=== PATIENT | female | born 1980 | race Caucasian/White ===

== ENCOUNTER 2019-02-02 07:28 | Emergency (ER) | payer SELFPAY ==
[~2019-02-02] VITALS: Ht 165.1 cm; Wt 147.9 kg
[2019-02-02 07:47] VITALS: Ht 165.1 cm; Wt 147.9 kg
[2019-02-02 08:13] LABS: BASOPHIL % 0.3 % (0-2); PLATELET COUNT 353 x10^3mcL (130-400)
[2019-02-02 08:25] LABS: CALCIUM 8.9 mg/dL (8.5-10.1); CARBON DIOXIDE 27.1 mmol/L (21-32); CHLORIDE SERUM 105 mmol/L (98-107); CREATININE SERUM 0.8 mg/dL (0.6-1.0); GFR1 > 60 mL/min; GLUCOSE SERUM 110 mg/dL (74-106); SODIUM SERUM 141 mmol/L (136-145)
[2019-02-02 08:28] LABS: RED CELL DISTRIBUTION WIDTH 14.6 % (11.5-14.5)
[2019-02-02 08:30] LABS: ALBUMIN 3.7 g/dL (3.4-5.0); ALKALINE PHOSPHATASE 106 U/L (46-116); ALT/SGPT 47 U/L (14-59); AST/SGOT 25 U/L (15-37); BILIRUBIN TOTAL 0.5 mg/dL (0.20-1.00); TOTAL PROTEIN, SERUM 8.1 g/dL (6.4-8.2)
[2019-02-02 09:46] VITALS: BP 142/87
== END 2019-02-02 09:46 | disposition home or self-care (01) ==
LOC: ED 07:28
PROVIDERS: Emergency Medicine
DX: R42 Dizziness and giddiness (principal); R11.0 Nausea; H93.11 Tinnitus, right ear
CPT/HCPCS: J2765; J7030; J8597

== ENCOUNTER 2019-05-02 08:50 | Emergency (ER) | payer SELFPAY ==
[~2019-05-02] VITALS: Ht 165.1 cm; Wt 142.4 kg
[2019-05-02 08:56] VITALS: BP 143/92; Ht 165.1 cm; Wt 142.4 kg
== END 2019-05-02 10:18 | disposition home or self-care (01) ==
LOC: ED 08:50
DX: F41.9 Anxiety disorder, unspecified (principal); R25.1 Tremor, unspecified; Z90.49 Acquired absence of other specified parts of digestive tract
CPT/HCPCS: 82962

== ENCOUNTER 2019-05-26 06:48 | Emergency (ER) | payer SELFPAY ==
[~2019-05-26] VITALS: Ht 162.6 cm; Wt 142.9 kg
[2019-05-26 06:58] VITALS: Ht 162.6 cm; Wt 142.9 kg
[2019-05-26 07:50] LABS: BASOPHIL % 0.3 % (0-2); PLATELET COUNT 299 x10^3mcL (130-400); RED CELL DISTRIBUTION WIDTH 14.2 % (11.5-14.5)
[2019-05-26 08:07] LABS: CALCIUM 8.8 mg/dL (8.5-10.1); CARBON DIOXIDE 26.8 mmol/L (21-32); CHLORIDE SERUM 108 mmol/L (98-107); CREATININE SERUM 0.8 mg/dL (0.6-1.0); GFR1 > 60 mL/min; GLUCOSE SERUM 108 mg/dL (74-106); SODIUM SERUM 145 mmol/L (136-145)
[2019-05-26 08:12] LABS: ALBUMIN 3.5 g/dL (3.4-5.0); ALKALINE PHOSPHATASE 87 U/L (46-116); ALT/SGPT 59 U/L (14-59); AST/SGOT 23 U/L (15-37); BILIRUBIN TOTAL 0.4 mg/dL (0.20-1.00); CHOLESTEROL 136 mg/dL (<200); TOTAL PROTEIN, SERUM 7.4 g/dL (6.4-8.2)
[2019-05-26 10:06] VITALS: BP 120/73
== END 2019-05-26 10:06 | disposition home or self-care (01) ==
LOC: ED 06:48
PROVIDERS: Specialist
DX: R53.1 Weakness (principal); R42 Dizziness and giddiness; R20.2 Paresthesia of skin
CPT/HCPCS: 36415; Q0092

== ENCOUNTER 2020-01-31 19:28 | Emergency (ER) | payer MEDICAID ==
[~2020-01-31] VITALS: Ht 162.6 cm; Wt 127.0 kg
[2020-01-31 19:31] VITALS: Ht 162.6 cm; Wt 127.0 kg
[2020-01-31 21:39] LABS: BASOPHIL % 0.3 % (0-2); PLATELET COUNT 330 x10^3mcL (130-400); RED CELL DISTRIBUTION WIDTH 13.7 % (11.5-14.5)
[2020-01-31 21:42] LABS: CALCIUM 8.9 mg/dL (8.5-10.1); CHLORIDE SERUM 107 mmol/L (98-107); CREATININE SERUM 0.9 mg/dL (0.6-1.0); GFR1 > 60 mL/min; GLUCOSE SERUM 109 mg/dL (74-106); POTASSIUM SERUM 3.4 mmol/L (3.5-5.1); SODIUM SERUM 143 mmol/L (136-145)
[2020-01-31 21:45] VITALS: BP 145/100
== END 2020-01-31 21:46 | disposition home or self-care (01) ==
LOC: ED 19:28
PROVIDERS: Emergency Medicine
DX: R00.2 Palpitations (principal); R42 Dizziness and giddiness; R53.1 Weakness; R19.7 Diarrhea, unspecified; M79.10 Myalgia, unspecified site; R63.0 Anorexia
CPT/HCPCS: J7030

== ENCOUNTER 2020-04-13 21:46 | Emergency (ER) | payer SELFPAY ==
[~2020-04-13] VITALS: Ht 165.1 cm; Wt 145.1 kg
[2020-04-13 21:48] VITALS: Ht 165.1 cm; Wt 145.1 kg
[2020-04-13 22:36] LABS: PLATELET COUNT 352 x10^3mcL (179-408); RED CELL DISTRIBUTION WIDTH 13.8 % (12.3-17.7)
[2020-04-13 22:44] LABS: BASOPHIL % 3.2 % (0.2-1.3)
[2020-04-13 22:48] LABS: UA SPECIFIC GRAVITY >=1.030 (1.005-1.035); microscopic required? YES; urine erythrocyte 3+ (NEGATIVE)
[2020-04-13 23:04] LABS: CALCIUM 9.3 mg/dL (8.5-10.1); CARBON DIOXIDE 23.8 mmol/L (21-32); CHLORIDE SERUM 105 mmol/L (98-107); GFR1 > 60 mL/min; GLUCOSE SERUM 122 mg/dL (74-106); POTASSIUM SERUM 3.9 mmol/L (3.5-5.1); SODIUM SERUM 142 mmol/L (136-145)
[2020-04-13 23:15] LABS: ALBUMIN 3.7 g/dL (3.4-5.0); ALKALINE PHOSPHATASE 101 U/L (46-116); ALT/SGPT 54 U/L (14-59); AST/SGOT 19 U/L (15-37); BILIRUBIN TOTAL 0.16 mg/dL (0.20-1.00); CHOLESTEROL 187 mg/dL (<200); HDL CHOLESTEROL 37 mg/dL (40-60); LIPASE 231 IU/L (73-393); T4(THYROXINE) 11.3 ug/dL (4.7-13.3); TOTAL PROTEIN, SERUM 7.8 g/dL (6.4-8.2)
[2020-04-13 23:27] LABS: AMPHETAMINE QUAL UR NONE DETECTED (See below)
[2020-04-14 01:54] VITALS: BP 113/68
== END 2020-04-14 01:54 | disposition home or self-care (01) ==
LOC: ED 21:46
PROVIDERS: Emergency Medicine
DX: F41.9 Anxiety disorder, unspecified (principal); R00.2 Palpitations; R79.1 Abnormal coagulation profile; E66.01 Morbid (severe) obesity due to excess calories; Z90.49 Acquired absence of other specified parts of digestive tract; Z20.822 Contact with and (suspected) exposure to COVID-19
CPT/HCPCS: 85378; G0480; J8597; Q9967; U0003

== ENCOUNTER 2020-04-19 18:15 | Emergency (ER) | payer MEDICAID ==
[~2020-04-19] VITALS: Ht 165.1 cm; Wt 1474.2 kg
[2020-04-19 18:38] VITALS: Ht 165.1 cm; Wt 1474.2 kg
[2020-04-19 21:14] VITALS: BP 134/89
== END 2020-04-19 21:14 | disposition home or self-care (01) ==
LOC: ED 18:15
DX: F41.9 Anxiety disorder, unspecified (principal); R42 Dizziness and giddiness; E66.9 Obesity, unspecified
CPT/HCPCS: J8597

== ENCOUNTER 2020-04-27 17:27 | Emergency (ER) | payer MEDICAID ==
[~2020-04-27] VITALS: Ht 165.1 cm; Wt 128.8 kg
[2020-04-27 17:35] VITALS: BP 142/96; Ht 165.1 cm; Wt 128.8 kg
== END 2020-04-27 19:27 | disposition home or self-care (01) ==
LOC: ED 17:27
DX: S46.912A Strain of unspecified muscle, fascia and tendon at shoulder and upper arm level, left arm, initial encounter (principal); X58.XXXA Exposure to other specified factors, initial encounter; Y93.89 Activity, other specified; Y92.89 Other specified places as the place of occurrence of the external cause; Y99.8 Other external cause status
CPT/HCPCS: J1885